=== PATIENT | female | born 1975 | race Caucasian/White ===

== ENCOUNTER 2016-12-29 19:41 | Emergency (ER) | payer MEDICAID ==
[~2016-12-29] VITALS: Ht 160 cm; Wt 75.0 kg
[~2016-12-29 19:41] MED LIST: FERR-43 PO; PREN-88 PO
[2016-12-29 20:14] VITALS: BP 145/96
== END 2016-12-29 23:40 | disposition left against medical advice (07) ==
LOC: ER 23:35
DX: R07.89 Other chest pain (principal); Z63.9 Problem related to primary support group, unspecified; Z53.21 Procedure and treatment not carried out due to patient leaving prior to being seen by health care provider

== ENCOUNTER 2019-08-30 22:25 | Emergency (ER) | payer MEDICAID ==
[~2019-08-30] VITALS: Ht 157.5 cm; Wt 69.0 kg
[~2019-08-30 22:25] MED LIST changes: +CIPR-263 PO; -FERR-43 PO; +NAPR-681 PO; -PREN-88 PO
[2019-08-31 00:20] VITALS: BP 144/89
== END 2019-08-31 00:22 | disposition left against medical advice (07) ==
LOC: ER 22:25
DX: R13.10 Dysphagia, unspecified (principal)
CPT/HCPCS: 99281

== ENCOUNTER 2023-09-21 15:54 | Emergency (ER) | payer MEDICAID ==
[~2023-09-21] VITALS: Ht 152.4 cm; Wt 68.0 kg
[2023-09-21 16:06] VITALS: TEMP 98.5; O2SAT 99
[2023-09-21] MEDS ORDERED: KETOROLAC 30MG/ML VIAL IM ONE (17:00)
[2023-09-21] MEDS ORDERED: TOPUD MT (18:48)
[2023-09-21 18:50] LABS: CLARITY URINE TURBID (CLEAR); COLOR URINE RED (YELLOW); GLUCOSE URINE NEGATIVE (NEGATIVE); KETONES URINE NEGATIVE (NEGATIVE); LEUKOCYTE ESTERASE URINE TRACE (NEGATIVE); NITRITE URINE NEGATIVE (NEGATIVE); OCCULT BLOOD URINE 3+ (NEGATIVE); PH URINE >=9.0 (4.5-8.0); PROTEIN URINE 1+ (NEGATIVE); SPECIFIC GRAVITY URINE 1.017 (1.005-1.030)
[2023-09-21 19:08] LABS: BACTERIA URINE 2+; RBC URINE TNTC /hpf (0-2); SQUAMOUS EPITHELIAL CELL URINE 1+ /lpf (RARE/1+)
[2023-09-21 19:09] LABS: WBC URINE 0-2 /hpf (0-2)
[2023-09-21] MEDS ORDERED: KETOROLAC 30MG/ML VIAL IM NR (19:45)
[2023-09-21 19:52] VITALS: BP 130/87; PULSE 104; RESP 14
== END 2023-09-21 19:52 | disposition home or self-care (01) ==
LOC: ER 15:54
DX: M54.50 Low back pain, unspecified (principal)
CPT/HCPCS: 81003; 81025; 96372; 99283; J1885; Z7610